=== PATIENT | female | born 1980 | race Caucasian/White ===

== ENCOUNTER 2018-10-01 20:35 | Emergency (ER) | payer MEDICAID, SELFPAY ==
[2018-10-01 20:37] VITALS: BP 118/86; PULSE 75; RESP 18; TEMP 36.9; O2SAT 100; BMI 31.4
--- NOTE | 2018-10-01 21:08 | ED.VISSUMM ---
- ER Visit Summary Date of Service: 10/01/18 Chief Complaint: Anxiety History of Present Illness: The patient is a 37 F who had a panic attack 1 month ago. She was seen at [facility] given 9 tabs of Ativan 0.5 mg. She space the pills out as needed but ran out of medication. She had a bad episode again 3 days ago. She is not able to get in to see her nurse practitioner for almost another month and then will be referred on to another doctor. She is currently staying with her father in [place]. Physical Examination: Vital signs unremarkable. Patient sitting upright in bed no acute distress. Head neck examination unremarkable. Heart is regular rate and rhythm with 3/6 murmur. Lungs sounds are clear. Abdomen is soft nontender. Psychiatric evaluation reveals normal speech pattern. She denies suicidal homicidal thoughts. Test Results: [] Emergency Department Course and Treatment: I attempted to verify her prescription on oars, but the site is currently down. Patient be given a prescription for 10 tabs of Ativan as needed. Social work will talk with the patient about follow-up with behavioral health. Treatment Plan: [] Disposition: Discharge Impression: Anxiety This note was generated with [email or web address] dictation software. It may contain incorrect words, spelling, and punctuation that were not noted in review of the chart prior to signing ED Disposition - Plan for ED Patient: Chief Complaint: Anxiety Instructions: ED Panic Attack Prescriptions: Lorazepam [Ativan] 0.5 mg PO TID PRN #10 tablet PRN Reason: Anxiety Referrals: Behavioral,Health [facility] [GROUP OF PHYSICIANS] - As soon as possible
--- NOTE | 2018-10-01 21:08 | ED.DEP ---
ED Disposition - Plan for ED Patient: Disposition: Home or Assisted Living Chief Complaint: Anxiety Instructions: ED Panic Attack Prescriptions: Lorazepam [Ativan] 0.5 mg PO TID PRN #10 tablet PRN Reason: Anxiety Referrals: Behavioral,Health [facility] [GROUP OF PHYSICIANS] - As soon as possible
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
[2018-10-01 22:17] VITALS: BP 133/71; PULSE 74; RESP 16; RESP 18; O2SAT 100; O2SAT 97
--- NOTE | 2018-10-02 11:55 | CM.ED ---
SOCIAL WORK NOTE CALL TO THE COUNSELING CENTER, SPOKE WITH TRINIDAD. PT IS A PREVIOUS CLIENT OF THE COUNSELING CENTER. APPOINTMENT SCHEDULED FOR 10/17/18 AT 9:30AM. CALL TO PT'S TO UPDATE ON APPOINTMENT TIME AND DATE. LEFT MESSAGE WITH THIS WORKER'S CALL BACK INFORMATION.
== END 2018-10-01 22:21 | disposition home or self-care (01) ==
PROVIDERS: Emergency Provider Emergency Medicine
DX: F41.9 Anxiety disorder, unspecified (principal); Z79.899 Other long term (current) drug therapy
CPT/HCPCS: 99282

== ENCOUNTER 2019-05-25 07:29 | Emergency (ER) | payer MEDICAID, SELFPAY ==
[2019-05-25 07:36] VITALS: BP 111/75; PULSE 65; RESP 12; TEMP 36.7; O2SAT 99; BMI 30.9
--- NOTE | 2019-05-25 08:17 | ED.VIS.GEN ---
History of Present Illness Chief Complaint: Anxiety Informant: Patient Onset: Today - An hour ago Context: - - upon waking Current Severity: Mild Maximum Severity: Severe Relieved by: reassurance from EMS Associated Symptoms: chest tightness, now resolved Narrative: Patient has an anxiety disorder that is not treated, states she has been under a lot of stress lately, and awoke with some chest discomfort this morning that is gone. It was nonpleuritic tightness. No pain or swelling in her legs. She felt like she was panicking mostly because she has a history of a bicuspid aortic valve and was very concerned about her discomfort which she has had before. She denies any palpitations, near syncope, dyspnea. No sweating, cough or recent fever, nausea, or arm discomfort. States she has known about her bicuspid aortic valve for a long time, recently had an echo to reevaluate it at another healthcare facility. - Past Medical History (1) Anxiety Status: Chronic (2) Bicuspid aortic valve Status: Chronic Past Medical History - Allergies and Home Meds Allergies/Adverse Reactions: Allergies codeine Adverse Reaction (Verified 10/01/18 20:37) Nausea Primary Care Physician: Bambi Hillman [Primary Care Provider] - Lives: Alone Smoking Status: Current every day smoker Drugs: None Review of Systems General: Denies: Chills, Fever, Sweats Eyes: Denies: Visual changes - bilaterally, Diplopia ENT: Denies: Rhinorrhea, Sore throat Cardiovascular: Reports: Chest pain - resolved. Denies: Palpitations Respiratory: Denies: Dyspnea, Cough, Dyspnea on exertion Gastrointestinal: Denies: Abdominal pain, Nausea, Vomiting, Diarrhea, Melena, Hematochezia Genitourinary: Denies: Dysuria, Hematuria, Frequency Musculoskeletal: Denies: Back pain, Extremity Pain Skin: Denies: Rash, Wounds Neurological: Denies: Headache, Weakness, Numbness Psych: Reports: Anxiety. Denies: Suicidal thoughts Physical Exam Vital Signs/Narrative: Vital Signs Temp Pulse Resp BP Pulse Ox 05/25/19 07:36 98.1 F 65 12 111/75 99 Inital Vital Signs reviewed: Yes General: Well nourished, Well developed, No Acute Distress Head: Normocephalic, Atraumatic Eyes: Perrl, EOMI ENT: Moist mucous membranes, No rhinorrhea Neck: Supple, Nontender Cardiovascular: Regular rate, Regular rhythm, Murmur - 2/6 systolic Respiratory: No distress, CTA bilaterally, Chest nontender Abdomen: Soft, Nontender, Nondistended, Normal bowel sounds Back: Nontender, Normal Inspection Extremities: Nontender, No edema Skin: Normal color, No rash, No Trauma Neurological: Alert, Oriented x3, Cranial nerves II-XII grossly intact, Normal Strength, Normal Sensation Psychological: Normal Mood, - - normal affect initially, but labile in that she becomes very anxious easily; no CP in ED Diagnostic/Tx/Re-eval - Medical Decision Making EMS EKG is of good quality and shows a sinus rhythm at 80 with no abnormal intervals, narrow QRS, and no ectopy. It is a normal EKG without acute injury. I do not feel this needs to be repeated. I reassured her, that bicuspid aortic valves generally do not cause problems that cause acute chest discomfort, and with her exam being unremarkable except for her systolic murmur which is likely caused by her valve, I do not detect any emergency that is likely causing her chest discomfort. It is more likely caused by her anxiety. She has had this occur before. I started discussing details about her valve to reassure her, and she put her head in her hands and demanded that I stop because she was having another anxiety attack. She will be given a dose of oral Ativan which she states is helped in the past and discharged in stable condition. ED Disposition - Plan for ED Patient: Disposition: Home or Assisted Living Diagnosis: Anxiety, Chest pain, unspecified Instructions: Panic Attack Referrals: Bambi Hillman [Primary Care Provider] - 3-5 Days
[2019-05-25 08:32] VITALS: BP 131/90; PULSE 63; RESP 16
[2019-05-25] MEDS: LORazepam 1 MG Tablet PO (08:36)
--- NOTE | 2019-05-25 08:36 | ED.RN ---
Pt requested half dose ordered. Dr zamora. She has called for ride home.
== END 2019-05-25 08:49 | disposition home or self-care (01) ==
LOC: ED 08:30
PROVIDERS: Emergency Provider Emergency Medicine
DX: F41.9 Anxiety disorder, unspecified (principal); R07.9 Chest pain, unspecified; Q23.1 Congenital insufficiency of aortic valve; F17.200 Nicotine dependence, unspecified, uncomplicated; Z79.899 Other long term (current) drug therapy; Z88.5 Allergy status to narcotic agent
CPT/HCPCS: 99284

== ENCOUNTER 2019-11-24 17:28 | Emergency (ER) | payer MEDICAID, SELFPAY ==
[2019-11-24 17:29] VITALS: BP 123/72; PULSE 91; RESP 18; TEMP 36.4; O2SAT 99; BMI 32.4
[2019-11-24 17:38] VITALS: O2SAT 98
--- NOTE | 2019-11-24 17:50 | CT_ITS ---
STUDY: CT BRAIN WITHOUT CONTRAST REASON FOR EXAM: Female, 39 years old. Trauma RADIATION DOSAGE (If Supplied By Facility): CTDIvol = ( 44.99 ) mGy, DLP = ( 745.49 ) mGycm TECHNIQUE: Transaxial CT imaging of the brain was performed without administration of intravenous contrast material. Individualized dose optimization techniques were used for this CT. COMPARISON: No relevant priors. FINDINGS: There is a 1 cm focal hypodensity in the right subcortical frontal white matter. There is no acute intracranial hemorrhage, extra parenchymal fluid collections, hydrocephalus or herniation. The skull is intact. CT/Brain/Head without Contrast IMPRESSION: 1. No acute intracranial trauma. 2. Right frontal white matter lesion, unknown etiology. Elective workup with brain MRI is advised. Electronically Signed: Travon Cowan, at 18:11 EST Tel , Service support ,
--- NOTE | 2019-11-24 17:51 | CT_ITS ---
STUDY: CT CERVICAL SPINE WITHOUT CONTRAST REASON FOR EXAM: Female, 39 years old. , Pain RADIATION DOSAGE (If Supplied By Facility): CTDIvol = ( 25.54 ) mGy, DLP = ( 591.73 ) mGycm TECHNIQUE: High resolution transaxial imaging was performed without contrast material. Sagittal and coronal images were reconstructed. Individualized dose optimization techniques were used for this CT. COMPARISON: None FINDINGS: Craniocervical junction and cervical spine are intact and aligned. Mineralization is normal. Paraspinous soft tissues are normal. Spinal canal is patent at all levels. Neural foramina are patent. There is a 1.5 cm peripherally calcified hypodense thyroid nodule. CT/Spine Cervical without Contras IMPRESSION: 1. No acute osseous injury. 2. Left thyroid nodule, referred ultrasonography for more definitive assessment. Electronically Signed: Travon Cowan, at 18:12 EST Tel , Service support ,
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
[2019-11-24 19:35] VITALS: BP 122/70; PULSE 78; RESP 17; O2SAT 99
--- NOTE | 2019-11-24 20:15 | ED.RN ---
VISITOR FOUND PT ID ON FLOOR IN ED LOBBY, THIS RN TRIED TO CONTACT PT TWICE, PT MAILBOX FULL, AND THIS RN WAS UNABLE TO LEAVE A VOICE MESSAGE TO INFORM HER OF HER ID BEING PRESENT IN ED. SECURITY CONTACTED TO PLACE ID IN LOST AND FOUND.
== END 2019-11-24 19:36 | disposition home or self-care (01) ==
PROVIDERS: Emergency Provider Emergency Medicine
DX: S09.90XA Unspecified injury of head, initial encounter (principal); M54.2 Cervicalgia; V43.62XA Car passenger injured in collision with other type car in traffic accident, initial encounter; Y93.9 Activity, unspecified; Y92.9 Unspecified place or not applicable; Y99.9 Unspecified external cause status; G93.9 Disorder of brain, unspecified; E04.1 Nontoxic single thyroid nodule; Q23.1 Congenital insufficiency of aortic valve; F41.9 Anxiety disorder, unspecified; Z88.5 Allergy status to narcotic agent; F17.200 Nicotine dependence, unspecified, uncomplicated
CPT/HCPCS: 70450; 72125; 99284

== ENCOUNTER 2020-04-04 02:03 | Emergency (ER) | payer MEDICAID, SELFPAY ==
[2020-04-04 02:03] VITALS: BP 145/85; PULSE 100; RESP 16; TEMP 37.1; O2SAT 98
[2020-04-04 02:06] VITALS: BP 145/85; PULSE 100; RESP 16; TEMP 37.1; O2SAT 98; BMI 31.4
--- NOTE | 2020-04-04 02:08 | EKG12_ITS ---
Test Reason : PALPATATIONS Blood Pressure : / mmHG Vent. Rate : 093 BPM Atrial Rate : 093 BPM P-R Int : 138 ms QRS Dur : 082 ms QT Int : 340 ms P-R-T Axes : 075 055 060 degrees QTc Int : 422 ms Normal sinus rhythm with sinus arrhythmia Normal ECG Confirmed by SARAHY LOPEZ, ROMI ([id number]), book or script editor RANDI PEARL ([id number]) on 04/06/2020 1:08:55 PM Referred By: ABHIJIT Confirmed By:ROMI WEATHERS MD
--- NOTE | 2020-04-04 02:13 | ED.RN ---
NO OLD EKGS IN MUSE
--- NOTE | 2020-04-04 02:27 | ED.DCSUM_ITS ---
History of Present Illness Chief Complaint: Palpitations Informant: Patient, EMS Narrative: Patient presenting secondary to palpitations and chest pain. Patient has an underlying history of a bicuspid aortic valve, denies any history of cardiac arrhythmias she used to see cardiology in [place], but no longer follows with a library services coordinator. Patient reports that intermittently she will have bouts with palpitations, but typically these only come around once a month. Patient states that over the course of about the last 5 days however she has been having very frequent bouts of palpitations. She reports that these will come on, last around 5 to 6 minutes at a time are associated with chest pain and then will spontaneously resolve. She reports that her heart rate will be around 130s or 140, is not necessarily inducible by anything such as anxiety or exertion, and occasionally will even wake her up from sleep as was the case tonight. Patient denies that she has had any sort of recent fevers, chills, night sweats, unintended weight loss. She has had somewhat of a decreased appetite but denies any heat or cold intolerance. Patient is not currently on any medications, she does not take stimulants, she denies any DVT or PE risk factors. Review of systems otherwise negative. Past Medical History - Allergies and Home Meds Allergies/Adverse Reactions: Allergies codeine Adverse Reaction (Verified 11/24/19 17:52) Nausea Primary Care Physician: Bambi Hillman [Photographic Equipment Mechanic] - Prior records reviewed: Yes Past Medical History: - - Bicuspid aortic valve Smoking Status: Current every day smoker Alcohol: None Drugs: None Review of Systems All systems negative except as indicated General: Denies: Chills, Fever, Sweats Eyes: Denies: Visual changes - bilaterally, Diplopia ENT: Denies: Rhinorrhea, Sore throat Cardiovascular: Reports: Chest pain, Palpitations Respiratory: Denies: Dyspnea, Cough, Dyspnea on exertion Gastrointestinal: Denies: Abdominal pain, Nausea, Vomiting, Diarrhea, Melena, Hematochezia Genitourinary: Denies: Dysuria, Hematuria, Frequency Musculoskeletal: Denies: Back pain, Extremity Pain Skin: Denies: Rash, Wounds Neurological: Denies: Headache, Weakness, Numbness Physical Exam Vital Signs/Narrative: Vital Signs Temp Pulse Resp BP Pulse Ox 04/04/20 02:06 98.7 F 100 16 145/85 H 98 04/04/20 02:03 98.7 F 100 16 145/85 H 98 Inital Vital Signs reviewed: Yes General: Well nourished, Well developed, No Acute Distress Head: Normocephalic, Atraumatic Eyes: Perrl, EOMI ENT: Moist mucous membranes, No rhinorrhea Neck: Supple, Nontender, - - Thyroid is normal to palpation and nontender Cardiovascular: Regular rate, Regular rhythm, No murmurs Respiratory: No distress, CTA bilaterally, Chest nontender Abdomen: Soft, Nontender, Nondistended, Normal bowel sounds Back: Nontender, Normal Inspection Extremities: Nontender, No edema Skin: Normal color, No rash Neurological: Alert, Oriented x3, Cranial nerves II-XII grossly intact, Normal Strength, Normal Sensation Psychological: Normal affect, Normal Mood Diagnostic/Tx/Re-eval Clinical Impression(s) from Imaging Studies Chest X-Ray 04/04/20 02:35 IMPRESSION: Normal x-ray examination of the chest. Electronically Signed: Jake Cota, at 3:59 EDT Tel , Service support , Chest CTA 04/04/20 03:17 IMPRESSION: No demonstrated pulmonary embolism or arterial dissection. Bilateral nonspecific thyroid nodules the largest measures 1.2 cm is in the left thyroid lobe. Electronically Signed: Jake Cota, at 6:14 EDT Tel , Service support , Laboratory Data 04/04/20 04/04/20 04/04/20 02:30 02:30 02:30 WBC 10.8 RBC 4.37 Hgb 13.0 Hct 38.4 MCV 87.9 MCH 29.7 MCHC 33.9 RDW Std Deviation 39.9 RDW Coeff of Rika 12.4 Plt Count 251 MPV 10.6 Immature Gran % (Auto) 0.200 Neut % (Auto) 57.1 Lymph % (Auto) 31.3 [place] % (Auto) 8.9 Eos % (Auto) 1.9 Baso % (Auto) 0.6 Absolute Neuts (auto) 6.2 Absolute Lymphs (auto) 3.39 Nucleated RBC % 0 D-Dimer Quant (PE/DVT) 0.72 H* Sodium 139 Potassium 3.4 L Chloride 110 H Carbon Dioxide 24.0 Anion Gap 5 BUN 10 Creatinine 0.52 L Estim Creat Clear Calc 126.67 Est GFR (MDRD) Af Amer 168 Est GFR (MDRD) Non-Af 139 BUN/Creatinine Ratio 19.1 Glucose 109 H Calcium 8.9 Troponin I < 0.015 TSH 2.48 Serum , Qual 04/04/20 02:30 WBC RBC Hgb Hct MCV MCH MCHC RDW Std Deviation RDW Coeff of Rika Plt Count MPV Immature Gran % (Auto) Neut % (Auto) Lymph % (Auto) [place] % (Auto) Eos % (Auto) Baso % (Auto) Absolute Neuts (auto) Absolute Lymphs (auto) Nucleated RBC % D-Dimer Quant (PE/DVT) Sodium Potassium Chloride Carbon Dioxide Anion Gap BUN Creatinine Estim Creat Clear Calc Est GFR (MDRD) Af Amer Est GFR (MDRD) Non-Af BUN/Creatinine Ratio Glucose Calcium Troponin I TSH Serum , Qual NEGATIVE - EKG Initial EKG Interpretation: - - Sinus rhythm 93 with some sinus arrhythmia noted, isoelectric ST segments normal T waves normal [place] and QTc intervals no evidence of WPW or Brugada morphology. - Medical Decision Making Patient presented secondary to feelings of intermittent palpitations. EKG was obtained and was found to be within normal limits. Patient did not have any evidence of palpitations or runs of arrhythmia on telemetry monitoring, although EMS did tell me that she had a heart rate of 130 when they arrived. Work-up was obtained. CBC chemistry TSH were within normal limits. Troponin was normal. test was negative. Due to the patient's elevated heart rate I did get a d-dimer which unfortunately was also found to be elevated. PA and lateral chest x-ray by my personal review as well as radiology is negative. With some difficulty getting IV access on the patient, but ultimately nursing was able to obtain access in the patient's right AC and CT angiogram of the chest was negative for PE or pulmonary pathology but interestingly did show some thyroid nodules. Patient was informed of this, was recommended that she needs to follow this up with primary care for a ultrasound and potentially a needle biopsy. I do not see any reasons for the patient to be admitted at this point. Patient was given reassurance and was discharged in stable condition. ED Disposition - Plan for ED Patient: Disposition: Home or Assisted Living Diagnosis: Palpitations, Thyroid nodule Instructions: ED Palpitations, Common Thyroid Problems Additional Instructions: Follow-up with your primary care physician for ultrasound and further evaluation of your thyroid nodules.
--- NOTE | 2020-04-04 02:35 | RAD_ITS ---
STUDY: X-RAY CHEST REASON FOR EXAM: Female, 39 years old. PALPITATIONS AND ANXIETY TECHNIQUE: Single AP portable view of the chest. COMPARISON: None. FINDINGS: The lungs are clear and expanded. There is no demonstrated pleural abnormality. Normal size heart. Normal mediastinum and jamilah. Normal visualized pulmonary arteries. Normal visualized aortic arch and descending thoracic aorta. Normal visualized thoracic spine. Normal visualized ribs, clavicles, and shoulders. There is no demonstrated abnormality of the visualized soft tissue structures of the upper abdomen. RAD/Chest PA and Lateral IMPRESSION: Normal x-ray examination of the chest. Electronically Signed: Jake Cota, at 3:59 EDT Tel , Service support ,
[2020-04-04] MEDS: 0.9% Normal Saline 1,000 ML 1000 ML IV (02:37)
[2020-04-04 02:46] LABS: Absolute Lymphocyte Count 3.39 X10^3/uL (0.83-4.51); Absolute Neutrophil Count 6.2 X10^3/uL (2.0-7.7); Basophil# 0.06 X10^3/uL; Basophil% 0.6 % (0-1); Eosinophil# 0.21 X10^3/uL; Eosinophils% 1.9 % (0-5); Hematocrit 38.4 % (37-47); Lymphocyte # 3.39 X10^3/ul (4.0); Lymphocyte % 31.3 % (19-41); Mean Corp Hgb Conc 33.9 g/dL (32-36); Mean Corpuscular Hgb 29.7 pg (27.0-32.0); Mean Corpuscular Volume 87.9 fL (81-99); Mean Platelet Vol. 10.6 fl (6.2-12.0); Monocyte# 0.96 X10^3/uL; Monocyte% 8.9 % (0-10); NRBC Flagged by Analyzer 0 % (0-5); Neutrophil % 57.1 % (47-70); Platelet Count 251 K/mm3 (150-450); RBC Distribution Width CV 12.4 % (11.6-14.6); RBC Distribution Width SD 39.9 fl (35.1-43.9); Red Blood Count 4.37 M/mm3 (4.2-5.4); White Blood Count 10.8 K/mm3 (4.4-11.0)
[2020-04-04 02:57] LABS: Internal QC Validated? YES +Cl - CLEAR BKGD; Pregnancy, Serum, hCG Quali. NEGATIVE Negative
[2020-04-04 03:02] LABS: D-Dimer Quantitative (DVT/PE) 0.72 FEU/ug/m (0.27-0.49)
[2020-04-04 03:03] VITALS: BP 114/76; PULSE 85; RESP 13
[2020-04-04 03:10] LABS: Anion Gap 5 (5-15); BUN 10 mg/dL (7-18); BUN/Creat Ratio 19.1 RATIO (10-20); Calcium,Total 8.9 mg/dL (8.5-10.1); Chloride 110 mmol/L (98-107); Creatinine, Serum 0.52 mg/dL (0.55-1.02); EST Glomerular Filtration Rate 139 mL/min (>60); Est Glom Filt Rate - Afr Amer 168 mL/min (>60); Estimated Creatinine Clearance 126.67 ml/min; Glucose 109 mg/dL (74-106); Potassium 3.4 mmol/L (3.5-5.1); Sodium Level 139 mmol/L (136-145); Thyroid Stim Hormone (TSH) 2.48 uIU/mL (0.358-3.74)
--- NOTE | 2020-04-04 03:17 | CT_ITS ---
STUDY: CTA CHEST REASON FOR EXAM: Female, 39 years old. HEART PALPITATIONS AND ANXIETY. H/O BICUSPID AORTIC VALVE RADIATION DOSAGE (If Supplied By Facility): CTDIvol = ( 10.775 ) mGy, DLP = ( 384.56 ) mGycm TECHNIQUE: The examination was performed with the intravenous administration of IV 100mL Isovue-370. Post-processing of the angiographic images was performed, with multiplanar reformation and 3D reconstruction. Individualized dose optimization techniques were used for this CT. COMPARISON: None. FINDINGS: Bilateral nonspecific thyroid nodules the largest measures 1.2 cm is in the left thyroid lobe. Normal enhancement of the main pulmonary artery and right and left pulmonary arteries. Normal enhancement of the bilateral peripheral pulmonary arteries. There is no demonstrated pulmonary embolism. Normal thoracic aorta and visualized great vessels. There is no demonstrated aortic dissection. Normal heart and pericardium. Normal mediastinum. There is a calcified lymph node in the right hilum measures 2.5 cm consistent with an old infectious process. Normal visualized trachea and bronchi. The lungs are well expanded. Normal pulmonary parenchyma. Normal pleura. Normal chest wall structures. Normal osseous structures. Normal visualized upper abdomen. CT/CTA Chest W/WO Contrast IMPRESSION: No demonstrated pulmonary embolism or arterial dissection. Bilateral nonspecific thyroid nodules the largest measures 1.2 cm is in the left thyroid lobe. Electronically Signed: Jake Cota, at 6:14 EDT Tel , Service support ,
[2020-04-04 04:15] VITALS: BP 136/77; PULSE 83; RESP 18
[2020-04-04 05:16] VITALS: PULSE 106; RESP 16
[2020-04-04 06:33] VITALS: BP 119/79; PULSE 76; RESP 15; O2SAT 96
--- NOTE | 2020-04-04 06:47 | ED.RN ---
PT DECIDED SHE DIDN'T WANT THE ORDERED IV ATIVAN. WASTED ATIVAN WITH FUENTES MAHONEY RN.
== END 2020-04-04 06:48 | disposition home or self-care (01) ==
PROVIDERS: Emergency Provider Emergency Medicine
DX: E04.2 Nontoxic multinodular goiter (principal); R00.2 Palpitations; R07.9 Chest pain, unspecified; R79.89 Other specified abnormal findings of blood chemistry; Q23.1 Congenital insufficiency of aortic valve; F17.200 Nicotine dependence, unspecified, uncomplicated; Z79.899 Other long term (current) drug therapy
CPT/HCPCS: 71046; 71275; 80048; 84443; 84484; 84703; 85025; 85379; 93005; 96360; 96361; 96372; 96374; 99285; J7030; Q9967; A4216

== ENCOUNTER 2020-04-22 16:10 | Emergency (ER) | payer MEDICAID, SELFPAY ==
[2020-04-22 16:15] VITALS: BP 113/83; PULSE 94; RESP 18; TEMP 36.8; O2SAT 99; BMI 29.2
--- NOTE | 2020-04-22 16:49 | EKG12_ITS ---
Test Reason : CP Blood Pressure : / mmHG Vent. Rate : 074 BPM Atrial Rate : 074 BPM P-R Int : 136 ms QRS Dur : 084 ms QT Int : 356 ms P-R-T Axes : 071 053 063 degrees QTc Int : 395 ms Normal sinus rhythm Normal ECG Confirmed by RANI LOPEZ, CECILIA ([id number]), acquisition editor RANDI PEARL ([id number]) on 04/26/2020 8:42:14 AM Referred By: JUAN Confirmed By:CECILIA SARAVIA MD
--- NOTE | 2020-04-22 16:53 | ED.VIS.GEN ---
History of Present Illness Chief Complaint: Back Informant: Patient Onset: Yesterday Timing: Intermittent Narrative: Patient is a 39-year-old female with history of anxiety presenting with left thoracic rib pain. She states it is pleuritic in nature and worse when she takes a deep breath. She intermittently has episodes where is very stabbing in sensation. When this happened she states she feels short of breath. This started last night. She is had about 6 episodes today. She was concerned that there could be something more seriously wrong with her. She states yesterday she felt a little warm had some mild congestion and a mild cough. She notes that the cough is chronic for her because she has a history of tobacco use. She denies any sick contacts. She talked to the nurse senior compensation analyst line who recommend she come to the emergency room to be evaluated further. She is her bowel moods been loose but she denies any black or blood in her stool. She denies any associated nausea or vomiting. She denies any change in her taste or smell. She not take any medication for pain. Denies any swelling of her legs. Denies any history of DVT or PE. Past Medical History - Allergies and Home Meds Allergies/Adverse Reactions: Allergies codeine Adverse Reaction (Verified 04/22/20 16:12) Nausea Past Medical History: - - Anxiety, congenital bicuspid aortic valve Surgical History: noncontributory Smoking Status: Current every day smoker Review of Systems General: Denies: Chills, Fever, Malaise, Sweats Eyes: Denies: Visual changes - bilaterally, Diplopia ENT: Denies: Rhinorrhea, Sore throat Cardiovascular: Reports: Chest pain. Denies: Palpitations, Heart racing Respiratory: Reports: Dyspnea, Cough. Denies: Dyspnea on exertion Gastrointestinal: Denies: Abdominal pain, Nausea, Vomiting, Diarrhea, Melena, Hematochezia Genitourinary: Denies: Dysuria, Hematuria, Frequency Musculoskeletal: Denies: Back pain, Extremity Pain Skin: Denies: Rash, Wounds Neurological: Denies: Headache, Weakness, Numbness Psych: Reports: Anxiety. Denies: Depression Physical Exam Vital Signs/Narrative: Vital Signs Temp Pulse Resp BP Pulse Ox 04/22/20 16:15 98.2 F 94 18 113/83 H 99 Inital Vital Signs reviewed: Yes General: Well nourished, Well developed, No Acute Distress Head: Normocephalic, Atraumatic Eyes: Perrl, EOMI ENT: Moist mucous membranes, No rhinorrhea Neck: Supple, Nontender Cardiovascular: Regular rate, Regular rhythm, Murmur Respiratory: No distress, CTA bilaterally, Chest nontender. Negative for: Chest tenderness Abdomen: Soft, Nontender, Nondistended, Normal bowel sounds Back: Nontender, Normal Inspection, - - Points to just beneath her left scapula as the area of pain is not reproducible on palpation. Negative for: Spinal tenderness Extremities: Nontender, No edema. Negative for: Edema, Calf Tenderness Skin: Normal color, No rash Neurological: Alert, Oriented x3, Cranial nerves II-XII grossly intact, Normal Strength, Normal Sensation Psychological: Normal affect, Normal Mood, Tearful, - - Anxious Diagnostic/Tx/Re-eval Chest X-Ray - ED: 2 View, Read by ED Physician, Read by Radiologist, No Acute Disease Clinical Impression(s) from Imaging Studies Chest X-Ray 04/22/20 17:04 IMPRESSION: No demonstrated acute process. Electronically Signed: Felix Ricketts MD at 17:47 EDT , Service support , Laboratory Data 04/22/20 04/22/20 04/22/20 16:20 16:20 16:20 WBC 10.3 RBC 4.55 Hgb 13.4 Hct 40.6 MCV 89.2 MCH 29.5 MCHC 33.0 RDW Std Deviation 39.8 RDW Coeff of Rika 12.2 Plt Count 278 MPV 11.2 Immature Gran % (Auto) 0.300 Neut % (Auto) 71.6 H Lymph % (Auto) 18.3 L [place] % (Auto) 7.8 Eos % (Auto) 1.4 Baso % (Auto) 0.6 Absolute Neuts (auto) 7.4 Absolute Lymphs (auto) 1.88 Nucleated RBC % 0 D-Dimer Quant (PE/DVT) 0.47 Sodium 139 Potassium 3.9 Chloride 109 H Carbon Dioxide 25.0 Anion Gap 5 BUN 12 Creatinine 0.55 Estim Creat Clear Calc 119.76 Est GFR (MDRD) Af Amer 159 Est GFR (MDRD) Non-Af 131 BUN/Creatinine Ratio 21.8 H Glucose 94 Calcium 9.2 Troponin I < 0.015 Urine Color Urine Clarity Urine pH Ur Specific [place] Urine Protein Urine Glucose (UA) Urine Ketones Urine Occult Blood Urine Nitrite Urine Bilirubin Urine Urobilinogen Ur Leukocyte Esterase Urine RBC Urine WBC Ur Squamous Epith Cells Amorphous Sediment Urine Bacteria Urine Mucus Urine Test 04/22/20 04/22/20 17:35 17:35 WBC RBC Hgb Hct MCV MCH MCHC RDW Std Deviation RDW Coeff of Rika Plt Count MPV Immature Gran % (Auto) Neut % (Auto) Lymph % (Auto) Bradley % (Auto) Eos % (Auto) Baso % (Auto) Absolute Neuts (auto) Absolute Lymphs (auto) Nucleated RBC % D-Dimer Quant (PE/DVT) Sodium Potassium Chloride Carbon Dioxide Anion Gap BUN Creatinine Estim Creat Clear Calc Est GFR (MDRD) Af Amer Est GFR (MDRD) Non-Af BUN/Creatinine Ratio Glucose Calcium Troponin I Urine Color Yellow Urine Clarity Sl. Cloudy Urine pH 7.0 Ur Specific [place] 1.010 Urine Protein Negative Urine Glucose (UA) Normal Urine Ketones Negative Urine Occult Blood Negative Urine Nitrite Negative Urine Bilirubin Negative Urine Urobilinogen Normal Ur Leukocyte Esterase Negative Urine RBC 0 SEEN Urine WBC 0 SEEN Ur Squamous Epith Cells 0 SEEN Amorphous Sediment 1+ Urine Bacteria 0 SEEN Urine Mucus 0 SEEN Urine Test Negative - Rhythm Strip Rhythm Strip: Sinus Rhythm Rate: 74 Ectopy: None - EKG Initial EKG Interpretation: Sinus Rhythm, - - Normal sinus rhythm at a rate of 74 Normal axis Normal intervals Normal ST segments Compared to prior EKG on 04/04/2020 patient has sinus arrhythmia but no other changes - Medical Decision Making Patient evaluated for atraumatic thoracic back pain. It is more on the left side. It seems to have a pleuritic component to it. Is not reproducible. There is no overlying rash. Patient is low risk for cardiac event or PE. I did obtain a d-dimer as she is having otherwise asymptomatic pleuritic pain. Have a low suspicion for PE and with a negative d-dimer I do not think a CTA is indicated. Her troponin is normal. EKG does not show any dynamic changes. The exact cause of her pain is not clear however differential includes pleurisy as well as muscle skeletal pain. Patient is counseled that she stable for discharge. Have very low clinical suspicion for coronavirus given her history, physical evaluation and lab results/chest x-ray. I do not think a COVID swab is indicated at this time. Patient does go on to mention that she has a outpatient COVID swab scheduled for tomorrow. I do question of there could be component of anxiety related to her symptoms. Patient was discharged home to follow-up with her primary care doctor. She is encouraged to alternate Tylenol and ibuprofen as needed for pain control. Patient is counseled on signs and symptoms requiring return to the emergency room. Patient verbalizes agreement and understand this plan. Patient discharged home in stable and improved condition. ED Disposition - Plan for ED Patient: Disposition: Home or Assisted Living Diagnosis: Acute thoracic back pain Instructions: ED Back Pain Acute or Chronic, ED Chest Pain Pleurisy Additional Instructions: Please follow-up with your primary care doctor. I have a low suspicion for coronavirus infection at this time. I think you are stable for outpatient follow-up and you do not have any signs consistent with a blood clot, pneumonia or heart issue at this time. Alternate Tylenol and ibuprofen as needed for your pain.
[2020-04-22 17:02] LABS: Absolute Lymphocyte Count 1.88 X10^3/uL (0.83-4.51); Absolute Neutrophil Count 7.4 X10^3/uL (2.0-7.7); Basophil# 0.06 X10^3/uL; Basophil% 0.6 % (0-1); Eosinophil# 0.14 X10^3/uL; Eosinophils% 1.4 % (0-5); Hematocrit 40.6 % (37-47); Hemoglobin 13.4 g/dL (12.0-15.0); Lymphocyte # 1.88 X10^3/ul (4.0); Lymphocyte % 18.3 % (19-41); Mean Corpuscular Hgb 29.5 pg (27.0-32.0); Mean Corpuscular Volume 89.2 fL (81-99); Mean Platelet Vol. 11.2 fl (6.2-12.0); Monocyte% 7.8 % (0-10); NRBC Flagged by Analyzer 0 % (0-5); Neutrophil # 7.36 X10^3/uL (2.7-7.7); Neutrophil % 71.6 % (47-70); Platelet Count 278 K/mm3 (150-450); RBC Distribution Width CV 12.2 % (11.6-14.6); RBC Distribution Width SD 39.8 fl (35.1-43.9); Red Blood Count 4.55 M/mm3 (4.2-5.4); White Blood Count 10.3 K/mm3 (4.4-11.0)
--- NOTE | 2020-04-22 17:04 | RAD_ITS ---
STUDY: X-RAY CHEST REASON FOR EXAM: Female, 39 years old. LEFT POSTERIOR LUNG/ CHEST PAIN -- HAS BICUSPID AORTIC VALVE TECHNIQUE: PA and lateral views of the chest. COMPARISON: Chest CTA dated April 04 2020 FINDINGS: The lungs are clear and expanded. There is no demonstrated pleural abnormality. Normal size heart. Reidentification of multiple calcified hilar lymph nodes. Normal visualized pulmonary arteries. Normal visualized aortic arch and descending thoracic aorta. Normal visualized thoracic spine. Normal visualized ribs, clavicles, and shoulders. There is no demonstrated abnormality of the visualized soft tissue structures of the upper abdomen. RAD/Chest PA and Lateral IMPRESSION: No demonstrated acute process. Electronically Signed: Felix Ricketts MD at 17:47 EDT , Service support ,
[2020-04-22 17:16] LABS: D-Dimer Quantitative (DVT/PE) 0.47 FEU/ug/m (0.27-0.49)
[2020-04-22 17:24] LABS: Anion Gap 5 (5-15); BUN 12 mg/dL (7-18); BUN/Creat Ratio 21.8 RATIO (10-20); Calcium,Total 9.2 mg/dL (8.5-10.1); Chloride 109 mmol/L (98-107); Creatinine, Serum 0.55 mg/dL (0.55-1.02); EST Glomerular Filtration Rate 131 mL/min (>60); Est Glom Filt Rate - Afr Amer 159 mL/min (>60); Estimated Creatinine Clearance 119.76 ml/min; Glucose 94 mg/dL (74-106); Potassium 3.9 mmol/L (3.5-5.1); Sodium Level 139 mmol/L (136-145)
[2020-04-22 17:39] LABS: Bacteria 0 SEEN /hpf (None Seen); Mucous, Urine 0 SEEN /hpf (<or=2+); Red Blood Cells-Urine 0 SEEN /hpf (0-5); Squamous Epithelial Cells - UA 0 SEEN /hpf (5-10); White Blood Cells 0 SEEN /hpf (0-5)
[2020-04-22 17:59] LABS: Internal QC Validated? YES +Cl - CLEAR BKGD; Pregnancy, Urine Negative Negative
[2020-04-22 18:05] LABS: Color, Urine Yellow (Yellow); Glucose, Dipstick Normal (Normal); Ketone-Dipstick Negative (Negative); Leukocyte Esterase-Dipstick Negative /ul (Negative); Nitrite-Dipstick Negative (Negative); Occult Blood-Urine Negative /ul (Negative); Protein-Dipstick Negative (Negative); Urine Bilirubin Dipstick Negative (Negative); Urine Clarity Sl. Cloudy (Clear); Urine Urobilinogen Normal (Normal)
[2020-04-22 18:06] LABS: Amorphous Sediment 1+
[2020-04-22 18:40] VITALS: BP 106/82; PULSE 70; RESP 12; O2SAT 97
== END 2020-04-22 18:50 | disposition home or self-care (01) ==
PROVIDERS: Emergency Provider Emergency Medicine
DX: M54.6 Pain in thoracic spine (principal); R07.81 Pleurodynia; F41.9 Anxiety disorder, unspecified; R06.02 Shortness of breath; R05 Cough; Q23.1 Congenital insufficiency of aortic valve; F17.200 Nicotine dependence, unspecified, uncomplicated; Z79.899 Other long term (current) drug therapy
CPT/HCPCS: 71046; 80048; 81001; 81025; 84484; 85025; 85379; 93005; 99285; A4216

== ENCOUNTER 2020-06-05 10:10 | Emergency (ER) | payer MEDICAID, SELFPAY ==
[2020-06-05 10:11] VITALS: BP 104/50; PULSE 85; RESP 16; TEMP 37.1; O2SAT 97; BMI 30.9
[2020-06-05 10:13] VITALS: BP 104/50; PULSE 85; RESP 16; TEMP 37.1; O2SAT 97
--- NOTE | 2020-06-05 10:23 | ED.DCSUM_ITS ---
History of Present Illness Chief Complaint: General Illness Informant: Patient Onset: Today Maximum Severity: Mild Narrative: The patient presents with multiple nonspecific complaints that include some slight diarrhea concerned that she might have COVID for nonspecific reasons. She has history of anxiety and panic disorder she indicates her sister who does not have COVID has nonspecific symptoms that she cannot fully describe that include diarrhea she spent slightly more time with her sister than normal she went to a local urgent care center and then she was referred to the emergency department for nonspecific reasons that really are unclear. The patient has no fever no cough no chest pain no shortness of breath the diarrhea is loose and watery and only had 1 or 2 episodes. She is had no exposure to coronavirus of any kind she has a history of bicuspid aortic valve and a cardiac murmur all of which is been stable she lives alone at home and she is doing well at home she does admit that sometimes her anxiety gets the better of her. She bought a pulse ox oximeter and she has been checking her pulse ox is and they have been normal again no fever no cough no chest pain no shortness of breath Past Medical History - Allergies and Home Meds Allergies/Adverse Reactions: Allergies codeine Adverse Reaction (Verified 06/05/20 10:11) Nausea Primary Care Physician: [facility] Doctor,Out of [Primary Care Provider] - Past Medical History: - - Includes as above Surgical History: noncontributory Smoking Status: Current every day smoker Review of Systems General: Denies: Chills, Fever, Sweats Eyes: Denies: Visual changes - bilaterally, Diplopia ENT: Denies: Rhinorrhea, Sore throat Cardiovascular: Denies: Chest pain, Palpitations Respiratory: Denies: Dyspnea, Cough, Dyspnea on exertion Gastrointestinal: Reports: Diarrhea. Denies: Abdominal pain, Nausea, Vomiting, Melena, Hematochezia Genitourinary: Denies: Dysuria, Hematuria, Frequency Musculoskeletal: Denies: Back pain, Extremity Pain Skin: Denies: Rash, Wounds Neurological: Denies: Headache, Weakness, Numbness Physical Exam Vital Signs/Narrative: Vital Signs Temp Pulse Resp BP Pulse Ox 06/05/20 10:13 98.7 F 85 16 104/50 L 97 06/05/20 10:11 98.7 F 85 16 104/50 L 97 General: Well nourished, Well developed, No Acute Distress Head: Normocephalic, Atraumatic Eyes: Perrl, EOMI ENT: Moist mucous membranes, No rhinorrhea Neck: Supple, Nontender Cardiovascular: Regular rate, Regular rhythm, No murmurs, Murmur Respiratory: No distress, CTA bilaterally, Chest nontender Abdomen: Soft, Nontender, Nondistended, Normal bowel sounds Back: Nontender, Normal Inspection Extremities: Nontender, No edema Skin: Normal color, No rash Neurological: Alert, Oriented x3, Cranial nerves II-XII grossly intact, Normal Strength, Normal Sensation Psychological: Normal affect, Normal Mood Diagnostic/Tx/Re-eval - Medical Decision Making Vital signs pulse ox temperature unremarkable her physical exam is unremarkable except for systolic murmur that she states is stable and she has been evaluated for extensively she requires no further therapy just observation. We watch the patient in the emergency department her vital signs remained unremarkable she has her own pulse ox I explained to her that given all the above there is no signs that she has been exposed to COVID or she has any symptoms like COVID she is comfortable that discussion, she will follow with outpatient providers and return for change in symptoms there does not appear to be any indication for testing Home stable Impression final concern for coronavirus exposure ED Disposition - Plan for ED Patient: Diagnosis: Situational stress, Anxiety Instructions: ED Diet for Vomiting or Diarrhea Adult Referrals: [facility] Doctor,Out of [Primary Care Provider] -
== END 2020-06-05 10:40 | disposition home or self-care (01) ==
LOC: ED 10:32
PROVIDERS: Emergency Provider Emergency Medicine
DX: F43.9 Reaction to severe stress, unspecified (principal); F41.9 Anxiety disorder, unspecified; R19.7 Diarrhea, unspecified; Q23.1 Congenital insufficiency of aortic valve; F41.0 Panic disorder [episodic paroxysmal anxiety]; F17.200 Nicotine dependence, unspecified, uncomplicated; Z79.899 Other long term (current) drug therapy
CPT/HCPCS: 99282

== ENCOUNTER 2021-01-16 20:07 | Emergency (ER) | payer MEDICAID, SELFPAY ==
[2021-01-16 20:10] VITALS: BP 128/76; PULSE 82; RESP 16; TEMP 36.4; O2SAT 99; BMI 30.9
--- NOTE | 2021-01-16 20:38 | EKG12_ITS ---
Test Reason : DYSRHYTHMIA Blood Pressure : / mmHG Vent. Rate : 075 BPM Atrial Rate : 075 BPM P-R Int : 144 ms QRS Dur : 088 ms QT Int : 378 ms P-R-T Axes : 073 054 056 degrees QTc Int : 422 ms Normal sinus rhythm Normal ECG Confirmed by SARAHY LOPEZ, ROMI ([id number]), communications editor RANDI PEARL ([id number]) on 01/19/2021 9:07:53 AM Referred By: GERARD Confirmed By:ROMI WEATHERS MD
--- NOTE | 2021-01-16 21:28 | CT_ITS ---
STUDY: CTA HEAD AND NECK WITH CONTRAST REASON FOR EXAM: Female, 40 years old. headache, left neck pain RADIATION DOSAGE (If Supplied By Facility): CTDIvol = ( 33.79 ) mGy, DLP = ( 1455.31 ) mGycm TECHNIQUE: CT angiography was performed with a multi-detector CT scanner. Data acquisition was obtained from the skull base through the vertex following intravenous administration of IV 100mL Isovue-370. MIP images were reconstructed from the axial data set. Post-processing of the angiographic images was performed, with multiplanar reformation and 3D reconstruction. Individualized dose optimization techniques were used for this CT. COMPARISON: No relevant priors. FINDINGS: Normal bilateral petrous carotid arteries. Normal right cavernous carotid artery with a normal supraclinoid bifurcation. Normal left cavernous carotid artery with a normal supraclinoid bifurcation. Normal right A1 segments of the anterior cerebral artery. Normal left A1 segments of the anterior cerebral artery. Normal intact anterior communicating artery (ACOM). Normal bilateral A2 segments of the anterior cerebral arteries. Normal right M1 and M2 segments of the middle cerebral arteries, with a normal M1 bifurcation. Normal left M1 and M2 segments of the middle cerebral arteries, with a normal M1 bifurcation. Posterior communicating arteries aren''t visualized consistent with normal variant. Normal bilateral vertebral arteries. Normal basilar artery with a normal basilar bifurcation. The visualized bilateral superior cerebellar (SCA) arteries are normal. Normal bilateral P1, P2 and visualized P3 segments of the posterior cerebral arteries. There is no demonstrated aneurysm of the [place]. There is no demonstrated abnormality of the visualized brain. AORTIC ARCH: Normal visualized aortic arch. Normal origins of the brachiocephalic, left common carotid, and left subclavian arteries. RIGHT CAROTID ARTERIES: Normal right common carotid artery (CCA). Normal right common carotid bulb. Normal origin of the right internal carotid (ICA) artery without a hemodynamically significant stenosis. Normal visualized cervical portion of the right internal carotid artery. Normal origin of the right external carotid artery (ECA). LEFT CAROTID ARTERIES: Normal left common carotid artery (CCA). Normal left common carotid bulb. Normal origin of the left internal carotid (ICA) artery without a hemodynamically significant stenosis. Normal visualized cervical portion of the left internal carotid artery. Normal origin of the left external carotid artery (ECA). VERTEBRAL ARTERIES: Normal bilateral vertebral arteries. CT/CTA Head AND Neck W/ Contrast IMPRESSION: Normal CTA Head and neck with contrast. Incidental finding of solid nodule with calcification in left lobe of the thyroid. Ultrasound recommended for further evaluation Electronically Signed: Jalil Higgins MD at 22:48 EDT , Service support ,
[2021-01-16 22:12] LABS: Absolute Lymphocyte Count 2.85 X10^3/uL (0.83-4.51); Absolute Neutrophil Count 5.8 X10^3/uL (2.0-7.7); Basophil# 0.08 X10^3/uL; Basophil% 0.8 % (0-1); Eosinophil# 0.33 X10^3/uL; Eosinophils% 3.3 % (0-5); Hematocrit 41.2 % (37-47); Hemoglobin 13.4 g/dL (12.0-15.0); Lymphocyte # 2.85 X10^3/ul (0.83-4.51); Lymphocyte % 28.3 % (19-41); Mean Corp Hgb Conc 32.5 g/dL (32-36); Mean Corpuscular Hgb 28.6 pg (27.0-32.0); Mean Platelet Vol. 11.5 fl (6.2-12.0); Monocyte# 0.95 X10^3/uL; Monocyte% 9.4 % (0-10); NRBC Flagged by Analyzer 0 % (0-5); Neutrophil # 5.84 X10^3/uL (2.7-7.7); Neutrophil % 57.9 % (47-70); POSITIVE COUNT YES; POSITIVE MORPHOLOGY YES; RBC Distribution Width SD 41.8 fl (35.1-43.9); Red Blood Count 4.68 M/mm3 (4.2-5.4); White Blood Count 10.1 K/mm3 (4.4-11.0)
[2021-01-16 22:17] LABS: Differential Indicated SCAN CRITERIA MET
[2021-01-16 22:28] LABS: Anion Gap 6 (5-15); BUN 10 mg/dL (7-18); Calcium,Total 9.5 mg/dL (8.5-10.1); Chloride 105 mmol/L (98-107); Creatinine, Serum 0.71 mg/dL (0.55-1.02); EST Glomerular Filtration Rate 97 mL/min (>60); Est Glom Filt Rate - Afr Amer 117 mL/min (>60); Estimated Creatinine Clearance 91.86 ml/min; Glucose 92 mg/dL (74-106); Potassium 4.2 mmol/L (3.5-5.1); Sodium Level 139 mmol/L (136-145)
[2021-01-16 22:50] LABS: Differential Comment SCANNED
[2021-01-16 22:51] LABS: Platelet Estimate ADEQUATE (ADEQ)
[2021-01-16 23:10] VITALS: BP 114/77; PULSE 74; O2SAT 97
--- NOTE | 2021-01-16 23:13 | ED.DCSUM_ITS ---
History of Present Illness Chief Complaint: Other, Pain/Inj Informant: Patient Onset: Today Narrative: Patient is a 40-year-old female with history of anxiety as well as thyroid nodules presenting with left-sided neck pain and odd sensation to her cheek. Patient states she was at work and feeling very stressed when it happened. States it felt like a pressure in her neck. She denies any associated vision changes. She denies any facial droop, hearing changes or weakness. She she is never had any like this before. She came to the ER to be evaluated further. No other complaints at this time. Past Medical History - Allergies and Home Meds Allergies/Adverse Reactions: Allergies amoxicillin Adverse Reaction (Verified 01/16/21 20:08) Vomiting codeine Adverse Reaction (Verified 01/16/21 20:08) Nausea Primary Care Physician: BRUNILDA RISO [Other] Past Medical History: - - Anxiety, thyroid nodules, bicuspid aortic valve Surgical History: noncontributory Smoking Status: Current every day smoker Review of Systems General: Denies: Chills, Fever, Sweats Eyes: Denies: Visual changes - bilaterally, Diplopia ENT: Denies: Rhinorrhea, Sore throat Cardiovascular: Denies: Chest pain, Palpitations Respiratory: Denies: Dyspnea, Cough, Dyspnea on exertion Gastrointestinal: Denies: Abdominal pain, Nausea, Vomiting, Diarrhea, Melena, Hematochezia Genitourinary: Denies: Dysuria, Hematuria, Frequency Musculoskeletal: Denies: Back pain, Extremity Pain Skin: Denies: Rash, Wounds Neurological: Reports: Parasthesia - Left neck and cheek area. Denies: Headache, Weakness, Numbness Psych: Reports: Anxiety. Denies: Depression Physical Exam Vital Signs/Narrative: Vital Signs Temp Pulse Resp BP Pulse Ox 01/16/21 23:10 74 114/77 97 01/16/21 20:10 97.5 F L 82 16 128/76 H 99 Inital Vital Signs reviewed: Yes General: Well nourished, Well developed, No Acute Distress Head: Normocephalic, Atraumatic Eyes: Perrl, EOMI ENT: Moist mucous membranes, No rhinorrhea, - - Sublingual mucosa is soft. Negative for: Nasal congestion, Sinus tenderness Neck: Supple, Nontender, No lymphadenopathy, No JVD, - - Meningeal signs, no bruits Cardiovascular: Regular rate, Regular rhythm, Murmur Respiratory: No distress, CTA bilaterally, Chest nontender Abdomen: Soft, Nontender, Nondistended, Normal bowel sounds Back: Nontender, Normal Inspection Extremities: Nontender, No edema Skin: Normal color, No rash Neurological: Alert, Oriented x3, Cranial nerves II-XII grossly intact, Normal Strength, Normal Sensation, Normal Gait, - - Normal coordination. Negative for: Left side facial droop, Right side facial droop Psychological: Normal affect, Normal Mood, Tearful Diagnostic/Tx/Re-eval Clinical Impression(s) from Imaging Studies Head/Neck CTA 01/16/21 21:28 IMPRESSION: Normal CTA Head and neck with contrast. Incidental finding of solid nodule with calcification in left lobe of the thyroid. Ultrasound recommended for further evaluation Electronically Signed: Jalil Higgins MD at 22:48 EDT , Service support , Laboratory Data 01/16/21 01/16/21 21:55 21:55 WBC 10.1 RBC 4.68 Hgb 13.4 Hct 41.2 MCV 88.0 MCH 28.6 MCHC 32.5 RDW Std Deviation 41.8 RDW Coeff of Rika 13.0 Plt Count TNP MPV 11.5 Immature Gran % (Auto) 0.300 Neut % (Auto) 57.9 Lymph % (Auto) 28.3 [place] % (Auto) 9.4 Eos % (Auto) 3.3 Baso % (Auto) 0.8 Absolute Neuts (auto) 5.8 Absolute Lymphs (auto) 2.85 Nucleated RBC % 0 Differential Comment SCANNED Platelet Estimate ADEQUATE Sodium 139 Potassium 4.2 Chloride 105 Carbon Dioxide 28.0 Anion Gap 6 BUN 10 Creatinine 0.71 Estim Creat Clear Calc 91.86 Est GFR (MDRD) Af Amer 117 Est GFR (MDRD) Non-Af 97 BUN/Creatinine Ratio 14.0 Glucose 92 Calcium 9.5 - Rhythm Strip Rhythm Strip: Sinus Rhythm Rate: 75 Ectopy: None - EKG Initial EKG Interpretation: Sinus Rhythm, - - Normal sinus rhythm at a rate of 75 Normal axis Normal intervals Normal ST segments - Medical Decision Making She was evaluated for episode of pressure and paresthesia on her left neck and cheek. She appears nontoxic in no acute distress. She has normal vital signs. She has a normal neurologic exam. EKG done per protocol which is normal. Do not think this is a referred cardiac pain. Patient is low risk for ACS. CTA of the head and neck is obtained to rule out any type of blunt cerebrovascular injury or aneurysm. This is negative. Patient has no focal neurologic deficits I think is stable for outpatient follow-up. CTA does show incidental thyroid nodule which patient was aware of. Patient has an appointment to follow-up to get an ultrasound. She also has a follow-up appointment with neurology. Patient is counseled on signs and symptoms require return the emergency room. She verbalizes agreement understand this plan. She is discharged home in stable condition. ED Disposition - Plan for ED Patient: Disposition: Home or Assisted Living Diagnosis: Thyroid nodule, Neck pain Instructions: ED Neck Pain Referrals: BRUNILDA RIOS [Other] Additional Instructions: Please follow-up with your primary care doctor for further evaluation of your thyroid nodule. Follow-up with your neurologist as planned. The exact cause of your presentation is not clear today but I have a low suspicion for stroke. I think you are safe to go home.
== END 2021-01-16 23:40 | disposition home or self-care (01) ==
PROVIDERS: Emergency Provider Emergency Medicine
DX: E04.1 Nontoxic single thyroid nodule (principal); M54.2 Cervicalgia; R20.2 Paresthesia of skin; Q23.1 Congenital insufficiency of aortic valve; F17.200 Nicotine dependence, unspecified, uncomplicated
CPT/HCPCS: 70496; 70498; 80048; 85025; 93005; 99284; Q9967; A4216

== ENCOUNTER 2021-03-18 17:41 | Emergency (ER) | payer MEDICAID, SELFPAY ==
[2021-03-18 17:42] VITALS: BP 126/85; PULSE 126; RESP 15; TEMP 36.8; O2SAT 95; BMI 33.3
--- NOTE | 2021-03-18 18:10 | EDS_ITS ---
HPI History of Present Illness Chief Complaint: Bite Narrative Narrative: 40-year-old female presenting for tick bite. She had this on her left lower abdomen. She could not tell me how long it has been on her abdomen. When asked if she thought she would have it on for 72 hours without noticing she states I do not know. She developed a small rash in this area but is not a target lesion. She did not identify the tick. She has no systemic signs or symptoms. Patient went to urgent care where they gave her doxycycline but could not obtain her blood to check for Lyme titer. ROS ROS ED Constitutional Constitutional ED: Denies chills, fever(s) or subjective Eyes Eyes: Denies blurry vision or change in vision ENT ENT ED: Denies ear pain or rhinorrhea Cardiovascular Cardiovascular: Denies chest pain or palpitations Respiratory/Chest Respiratory/Chest: Denies cough or dyspnea Gastrointestinal Gastrointestinal: Denies abdominal pain or nausea Genitourinary Genitourinary ED: Denies dysuria or hematuria Musculoskeletal Musculoskeletal: Denies arthralgias or myalgias Integumentary Reports rash Neurologic Neurologic: Denies headache(s), paresthesias or weakness PFSH PFSH Home Medications NK 01/16/21 [History Last Taken Unknown] Allergy/AdvReac Type Severity Reaction Status Date / Time amoxicillin AdvReac Vomiting Verified 03/18/21 17:42 codeine AdvReac Nausea Verified 03/18/21 17:42 Social History Smoking Status: Current every day smoker tobacco type: cigarettes EXAM Physical Exam Const Vital Signs: 03/18/21 17:42 03/18/21 20:02 Temperature 98.3 F Temperature Source Temporal Pulse Rate 126 H Respiratory Rate 15 16 Blood Pressure 126/85 H Blood Pressure Mean 98 Pulse Ox 95 Oxygen Delivery Method Room Air Positive well nourished and well developed General Appearance ED: well developed HEENT normocephalic and atraumatic Resp normal respiratory effort Cardio regular rhythm Rate: tachycardic Skin Skin Narrative: 3 x 3 cm erythematous rash on left lower abdomen. This is not a target lesion. MDM MDM MDM Narrative Medical decision making narrative: Patient presents with a small area of rash on the left lower abdomen. By the criteria she does not need to be treated for Lyme disease. She is counseled on this. Urgent care had already given her treatment. I told her therefore she still did not require a Lyme titer. Shelbie nt states that she wants to have a Lyme titer to make her feel more comfortable. I counseled her she would have already been treated prophylactically. She still insisted on having this done so I attempted to get blood drawn for this. Blood work was drawn and she knows to wait for the results at home. Patient discharged stable condition. Impression: 1 tick bite Discharge Plan Triage Chief Complaint: Bite ED Provider: Jacoby Garza Dx/Rx/DC Orders Instructions: ED Tick Bite, No Abx Tx Prescriptions: No Action NK RF: 0 Referrals: BRUNILDA RIOS [Other] Disposition Disposition: Home, Self Care Discharge Date/Time: 03/18/21 20:03
[2021-03-18 18:23] LABS: Lyme Ab Screen Interpretation REF LAB
[2021-03-18 20:02] VITALS: RESP 16
[2021-03-23 16:09] LABS: Lyme IgG P18 Ab Absent (.); Lyme IgG P23 Ab Absent (.); Lyme IgG P28 Ab Absent (.); Lyme IgG P30 Ab Absent (.); Lyme IgG P39 Ab Absent (.); Lyme IgG P41 Ab Absent (.); Lyme IgG P45 Ab Absent (.); Lyme IgG P58 Ab Absent (.); Lyme IgG P66 Ab Absent (.); Lyme IgG P93 Ab Absent (.); Lyme IgM P23 Ab Absent (.); Lyme IgM P39 Ab Absent (.); Lyme IgM P41 Ab Absent (.)
[2021-03-24 09:43] LABS: Lyme IgG WB Interpretation Negative (.); Lyme IgM WB Interpretation Negative (.); Lyme Scn Total Ab w/Rflx <0.91 ISR (0.00-0.90)
== END 2021-03-18 20:03 | disposition home or self-care (01) ==
PROVIDERS: Emergency Provider Student in an Organized Health Care Education/Training Program
DX: S30.861A Insect bite (nonvenomous) of abdominal wall, initial encounter (principal); W57.XXXA Bitten or stung by nonvenomous insect and other nonvenomous arthropods, initial encounter; Y93.9 Activity, unspecified; Y92.9 Unspecified place or not applicable; Y99.9 Unspecified external cause status; F17.210 Nicotine dependence, cigarettes, uncomplicated
CPT/HCPCS: 36415; 86617; 86618; 99282

== ENCOUNTER 2024-09-10 06:12 | Emergency (ER) | payer MEDICAID, SELFPAY ==
[2024-09-10 06:14] VITALS: BP 95/65; PULSE 83; RESP 16; TEMP 36.6; O2SAT 98; BMI 34.0
--- NOTE | 2024-09-10 06:23 | EKG12_ITS ---
Test Reason : Blood Pressure : */* mmHG Vent. Rate : 75 BPM Atrial Rate : 75 BPM P-R Int : 126 ms QRS Dur : 98 ms QT Int : 408 ms P-R-T Axes : 40 65 92 degrees QTcB Int : 455 ms Normal sinus rhythm Left ventricular hypertrophy with repolarization abnormality ( Sokolow-Milian ) Abnormal ECG Confirmed by RANI LOPEZ, CECILIA ([id number]), editor map RANDI PEARL ([id number]) on 09/11/2024 8:08:57 AM Referred By: Confirmed By: CECILIA SARAVIA MD
--- NOTE | 2024-09-10 06:25 | EX.ED.DYSGE1 ---
HPI History of Present Illness Chief Complaint: Weakness Informant: patient and EMS Narrative Narrative: 43-year-old female called EMS from work this morning for being all hot and bothered. 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 Today it was worse and she vomited. She denies any abdominal pain, chest pain, dyspnea, or losing consciousness today. She states the worst time is when she approaches the time clock to clock in. She states working there in the morning by herself is very stressful and it is high pressure. She has a history of anxiety. She used to take Ativan for it but it was 4 or 5 years ago and she has not taken anything since. [facility] Medical History (Updated 09/10/24 @ 06:[address] Jason Roblero MD) Anxiety Bicuspid aortic valve Medical History no medical history Home Medications ?Medication ?Instructions ?Recorded ?Last Taken ?Type ondansetron 8 mg disintegrating 8 mg PO Q8H PRN nausea and 09/10/24 Unknown Rx tablet vomiting #12 tabs Allergy/AdvReac Type Severity Reaction Status Date / Time amoxicillin AdvReac Vomiting Verified 09/10/24 06:14 codeine AdvReac Nausea Verified 09/10/24 06:14 Social History Smoking Status: Current every day smoker tobacco type: cigarettes ROS ROS ED Constitutional Constitutional ED: Denies chills or fever(s) Eyes Eyes: Denies change in vision or diplopia ENT ENT ED: Denies rhinorrhea or sore throat Cardiovascular Cardiovascular: Reports lightheadedness; Denies chest pain, leg edema, palpitations or syncope Respiratory/Chest Respiratory/Chest: Denies cough or dyspnea Gastrointestinal Gastrointestinal: Reports nausea and vomiting; Denies abdominal pain or diarrhea Genitourinary Genitourinary ED: Denies dysuria or hematuria Musculoskeletal Musculoskeletal: Denies back pain or neck pain Integumentary Denies abscess or rash Neurologic Neurologic: Denies headache(s), paresthesias or weakness Psychiatric Psychiatric: Reports anxiety; Denies suicidal thoughts EXAM Physical Exam Const Vital Signs: 09/10/24 06:14 09/10/24 06:17 Temperature 97.9 F Temperature Source Oral Pulse Rate 83 Respiratory Rate 16 Respiratory Pattern Normal Blood Pressure 95/65 Blood Pressure Mean 75 Pulse Ox 98 Positive well nourished and well developed General Appearance ED: well developed and NAD HEENT Reports moist mucous membranes normocephalic and atraumatic Eyes PERRL and EOMs intact bilaterally Neck full ROM and supple Resp normal respiratory effort and clear to auscultation bilaterally Cardio regular rate, regular rhythm and peripheral pulses 2+ throughout Heart Sounds: murmur systolic III/ crescendo-decrescendo GI non-tender and non-distended Auscultation: normoactive bowel sounds Palpation: soft Back/Spine no CVA tenderness General Back: other FROM Extremity normal to inspection General Extremety ED: Negative for edema, pulses abnormal or tenderness General Extremity: Negative for edema or pulses abnormal Neuro oriented x3, CN's II-XII intact bilaterally and no sensory deficits noted Sensorium / Orientation: awake and alert Motor Exam: strength 5/5 throughout Psych Mood & Affect: anxious Skin no rashes or lesions noted and no wounds MDM MDM MDM Narrative Medical decision making narrative: Patient has normal vital signs except her blood pressure is a little soft at 95/65. She is on no medications right now. I think this is all anxiety and the patient does 2, given her heart murmur presumably due to her bicuspid aortic valve, I thought it was reasonable to perform a medical workup and rule out emergent conditions and dysrhythmias. She was offered Zofran for nausea which she still has but she refuses it because she reacts to too many medications. Labs are reviewed and unremarkable. No major electrolyte disturbance and her is negative ruling out ectopic. She will except a prescription for Zofran, but thinks that she just needs to go home and sleep and see her crawford retriever. Lab Data Attestation: I reviewed the patient's lab results. Labs: Laboratory Results - last 24 hr 09/10/24 06:30 WBC 7.4 RBC 4.29 Hgb 12.4 Hct 37.0 MCV 86.2 MCH 28.9 MCHC 33.5 RDW Std Deviation 39.8 RDW Coeff of Rika 12.7 Plt Count 131 L MPV 11.7 Immature Gran % (Auto) 0.300 Neut % (Auto) 56.3 Lymph % (Auto) 28.6 [place] % (Auto) 11.8 H Eos % (Auto) 2.3 Baso % (Auto) 0.7 Absolute Neuts (auto) 4.2 Absolute Lymphs (auto) 2.11 Nucleated RBC % 0 Differential Comment SCANNED Platelet Estimate SLT DEC RBC Morphology NORM C+C Sodium 138 Potassium 3.8 Chloride 108 H Carbon Dioxide 24.0 Anion Gap 6 BUN 13 Creatinine 0.74 Estim Creat Clear Calc 107.60 Est GFR (MDRD) Af Amer 111 Est GFR (MDRD) Non-Af 92 BUN/Creatinine Ratio 17.6 Glucose 115 H Calcium 9.3 Serum , Qual NEGATIVE Rhythm Strip Rhythm Strip: Sinus Rhythm Rate: 75 Ectopy: None EKG Initial EKG: Attestation: I personally reviewed and interpreted this EKG as follows: Interpretation: Sinus Rhythm and No Acute Injury Pattern Comments: Nml axis & intervals; nml EKG Discharge Plan Triage Chief Complaint: Weakness ED Provider: Jason Roblero Dx/Rx/DC Orders Clinical Impression: Anxiety in acute stress reaction Instructions: ED Anxiety Reaction Prescriptions: New ondansetron 8 mg tablet,disintegrating 8 mg PO Q8H PRN (Reason: nausea and vomiting) Qty: 12 0RF Primary Care Provider: Care Physician,No Primary Referrals: Doctor,Your [Non-Staff] - As soon as possible Print Language: Estonian Disposition Disposition: Home, Self Care
[2024-09-10 06:37] LABS: Absolute Lymphocyte Count 2.11 X10^3/uL (0.83-4.51); Absolute Neutrophil Count 4.2 X10^3/uL (2.0-7.7); Basophil# 0.05 X10^3/uL; Basophil% 0.7 % (0-1); Eosinophil# 0.17 X10^3/uL; Eosinophils% 2.3 % (0-5); Hemoglobin 12.4 g/dL (12.0-15.0); Lymphocyte # 2.11 X10^3/ul (0.83-4.51); Lymphocyte % 28.6 % (19-41); Mean Corp Hgb Conc 33.5 g/dL (32-36); Mean Corpuscular Hgb 28.9 pg (27.0-32.0); Mean Corpuscular Volume 86.2 fL (81-99); Mean Platelet Vol. 11.7 fl (6.2-12.0); Monocyte# 0.87 X10^3/uL; Monocyte% 11.8 % (0-10); NRBC Flagged by Analyzer 0 % (0-5); Neutrophil # 4.16 X10^3/uL (2.7-7.7); Neutrophil % 56.3 % (47-70); POSITIVE COUNT YES; Platelet Count 131 K/mm3 (150-450); RBC Distribution Width CV 12.7 % (11.6-14.6); RBC Distribution Width SD 39.8 fl (35.1-43.9); Red Blood Count 4.29 M/mm3 (4.2-5.4); White Blood Count 7.4 K/mm3 (4.4-11.0)
[2024-09-10 06:52] LABS: Internal QC Validated? YES +Cl - CLEAR BKGD; Pregnancy, Serum, hCG Quali. NEGATIVE Negative; Record Kit Lot#, Serum Preg. 872158
[2024-09-10 06:54] LABS: Anion Gap 6 (5-15); BUN 13 mg/dL (7-18); BUN/Creat Ratio 17.6 RATIO (10-20); Calcium,Total 9.3 mg/dL (8.5-10.1); Chloride 108 mmol/L (98-107); Creatinine, Serum 0.74 mg/dL (0.55-1.02); EST Glomerular Filtration Rate 92 mL/min (>60); Est Glom Filt Rate - Afr Amer 111 mL/min (>60); Glucose 115 mg/dL (74-106); Potassium 3.8 mmol/L (3.5-5.1); Sodium Level 138 mmol/L (136-145)
[2024-09-10 07:02] LABS: Differential Comment SCANNED; Differential Indicated SCAN CRITERIA MET; Platelet Estimate SLT DEC (ADEQ); Red Cell Morphology NORM C+C NORMAL (NORM C&C)
[2024-09-10 07:06] VITALS: BP 118/79; PULSE 72; RESP 15; TEMP 36.3; O2SAT 100
== END 2024-09-10 07:07 | disposition home or self-care (01) ==
LOC: ED 06:39
PROVIDERS: Emergency Provider Emergency Medicine; Visit Provider Emergency Medicine
DX: F43.0 Acute stress reaction (principal); F17.210 Nicotine dependence, cigarettes, uncomplicated
CPT/HCPCS: 80048; 84703; 85025; 93005; 96374; 99285; A4216; J2405

== ENCOUNTER 2025-08-01 09:04 | Emergency (ER) | payer MEDICAID, SELFPAY ==
[2025-08-01 09:04] VITALS: TEMP 36.6; BMI 34.9
--- NOTE | 2025-08-01 09:23 | EKG12_ITS ---
Test Reason : GENERAL
--- NOTE | 2025-08-01 09:25 | EX.ED.DYSGE1 ---
HPI History of Present Illness Chief Complaint: Syncope Informant: patient and EMS Narrative Narrative: 44-year-old female presenting to the emergency room via EMS with a chief complaint of syncope. Patient speaks is a rather elusive historian. Starts by telling me that she has a bicuspid valve, a lesion on her brain that they are watching, and possible MS. She states that she walks around all the time feeling like she may be able to pass out. She states that today she lost control of her bowels and is vomiting. She states that preceding that she had a syncopal episode. She states her dad found her in the bathroom. She wonders if she hit her head. She states that she had a very stressful episode prior to the event. When asked what the stressful episode was she states that her dad was recently in the hospital and they thought that maybe he had a stroke. Her sister was at the home and was having her dad carry something heavy and he fell. She states that her sister and subsequently left for [place] it was very stressful for her. Patient states that she does not currently take any medications or is under any treatment for anything. She states she does not have a family doctor. She has several ED visits for anxiety. Patient states she is nauseous and is not having vomiting. [facility] Medical History Bicuspid aortic valve Anxiety Home Medications ?Medication ?Instructions ?Recorded ?Last Taken ?Type NK 08/01/25 Unknown History Allergy/AdvReac Type Severity Reaction Status Date / Time Penicillins (PCN) Allergy Mild Vomiting Verified 08/01/25 09:05 amoxicillin AdvReac Vomiting Verified 08/01/25 09:05 codeine AdvReac Nausea Verified 08/01/25 09:05 Surgical History History of surgery on lower extremity Social History Smoking Status: Current every day smoker tobacco type: cigarettes ROS ROS ED Constitutional Constitutional ED: Denies chills, fever(s) or weight loss Eyes Eyes: Denies change in vision or diplopia ENT ENT ED: Denies ear pain, rhinorrhea or sore throat Cardiovascular Cardiovascular: Reports other Details: Syncope/near syncope ; Denies chest pain, orthopnea, palpitations or racing heartbeat Respiratory/Chest Respiratory/Chest: Denies cough, dyspnea or orthopnea Gastrointestinal Gastrointestinal: Reports nausea and vomiting; Denies abdominal pain or diarrhea Genitourinary Genitourinary ED: Denies dysuria, hematuria or urinary frequency Musculoskeletal Musculoskeletal: Denies arthralgias or myalgias Integumentary Denies abscess or rash Neurologic Neurologic: Denies headache(s) or weakness Psychiatric Psychiatric: Reports anxiety; Denies depression, suicidal ideation or suicidal thoughts Endocrine Endocrinology: Denies polydipsia, polyphagia or polyuria Allergic/Immunologic Allergic/Immunologic ED: Denies mouth swelling, tongue swelling or urticaria EXAM Physical Exam Narrative Exam Narrative: Patient moving around the bed. She does spit into an emesis bag but no emesis. Const Vital Signs: 08/01/25 09:04 08/01/25 09:15 08/01/25 11:04 Temperature 97.8 F Temperature Source Oral Pulse Rate 97 Respiratory Effort Normal Non-Labored Respiratory Pattern Normal Blood Pressure 136/99 H Blood Pressure Mean 111 Positive well nourished and well developed General Appearance ED: well developed HEENT Reports normocephalic, head/scalp atraumatic and moist mucous membranes Eyes PERRL and EOMs intact bilaterally Neck no lymphadenopathy, supple and no JVD Resp normal respiratory effort and clear to auscultation bilaterally Cardio regular rate and regular rhythm Rate: other Other Details: 2 out of 6 systolic murmur GI normal to inspection, nondistended, normoactive bowel sounds and non-tender Palpation: soft Back/Spine no CVA tenderness and normal ROM Extremity normal to inspection General Extremety ED: Negative for edema General Extremity: Negative for edema Neuro oriented x3 and CN's II-XII intact bilaterally Sensorium / Orientation: alert Motor Exam: strength 5/5 throughout Psych mental status grossly normal Psych Narrative: Patient appears anxious and has a dramatic/PD affect. Mood & Affect: anxious; Negative for depressed or tearful Skin no rashes or lesions noted and no wounds MDM MDM MDM Narrative Medical decision making narrative: Differential diagnosis includes anxiety/panic attack, cardiogenic syncope, dehydration, gastroenteritis, electrolyte abnormality, head injury, Patient appears in a sinus rhythm on the monitor. EKG is normal sinus rhythm at a rate of 75. Negative interpretation of the chest x-ray is no acute process. Basic blood work is obtained shows hemoglobin 13.1. Normal electrolytes. test is negative. Initially Compazine and Benadryl was ordered but the patient declined requesting Zofran. She is doing better on repeat examination. I suspect that the patient had significant anxiety coupled with being in the bathroom resulted in a probable vagal reaction. Would recommend decreasing stress stress management following up/establishing primary care. Patient is comfortable with this plan History & Record Review Discussion w/independent historian: Patient Additional record(s) reviewed:: Prior ED visit Lab Data Attestation: I reviewed the patient's lab results. Labs: Laboratory Results - last 24 hr 08/01/25 09:37 WBC 9.3 RBC 4.42 Hgb 13.1 Hct 38.3 MCV 86.7 MCH 29.6 MCHC 34.2 RDW Std Deviation 41.1 RDW Coeff of Rika 13.0 Plt Count 288 MPV 11.2 Immature Gran % (Auto) 0.200 Neut % (Auto) 55.1 Lymph % (Auto) 30.7 [place] % (Auto) 8.9 Eos % (Auto) 4.1 Baso % (Auto) 1.0 Absolute Neuts (auto) 5.1 Absolute Lymphs (auto) 2.84 Nucleated RBC % 0 Sodium 140 Potassium 3.3 Chloride 108 Carbon Dioxide 19.8 L Anion Gap 13 BUN 10 Creatinine 0.67 L Estim Creat Clear Calc 119.20 Est GFR (MDRD) Non-Af 111 BUN/Creatinine Ratio 15.2 Glucose 140 H Calcium 9.2 Total Bilirubin 0.65 AST 29 ALT 29 Alkaline Phosphatase 66 Total Protein 7.1 Albumin 4.1 Globulin 3.0 Albumin/Globulin Ratio 1.4 Serum , Qual NEGATIVE Radiography Diagnostic Testing: Clinical Impression(s) from Imaging Studies Chest X-Ray 08/01/25 10:20 IMPRESSION: No acute cardiopulmonary abnormalities. Reading Location: [facility] EKG Initial EKG: Attestation: I personally reviewed and interpreted this EKG as follows: Comments: Normal sinus rhythm ventricular rate of 75 bpm. Discharge Plan Triage Chief Complaint: Syncope ED Provider: Juan Alberto Cortez Dx/Rx/DC Orders Clinical Impression: Syncope, Anxiety, Vomiting Instructions: Causes of Syncope Prescriptions: No Action NK Primary Care Provider: Care Physician,No Primary Referrals: Care Physician,No Primary [Primary Care Provider, Medical] Print Language: Armenian Disposition Disposition: Home, Self Care
[2025-08-01 09:47] LABS: Hematocrit 38.3 % (37-47); Hemoglobin 13.1 g/dL (12.0-15.0); Immature Granulocytes Count 0.020 X10^3/uL (0.0-0.0); Mean Corp Hgb Conc 34.2 g/dL (32-36); Mean Corpuscular Volume 86.7 fL (81-99); Mean Platelet Vol. 11.2 fl (6.2-12.0); NRBC Flagged by Analyzer 0 % (0-5); Platelet Count 288 K/mm3 (150-450); RBC Distribution Width CV 13.0 % (11.6-14.6); RBC Distribution Width SD 41.1 fl (35.1-43.9); Red Blood Count 4.42 M/mm3 (4.2-5.4); White Blood Count 9.3 K/mm3 (4.4-11.0)
[2025-08-01] MEDS: 0.9% Normal Saline (1000mL) 1,000 ML 1000 ML IV (09:50)
[2025-08-01 09:59] LABS: Internal QC Validated? YES +Cl - CLEAR BKGD; Pregnancy, Serum, hCG Quali. NEGATIVE Negative; Record Kit Lot#, Serum Preg. 980607
[2025-08-01 10:10] LABS: AST(SGOT) 29 U/L (<=31); Alanine Aminotransfer ALT/SGPT 29 U/L (<=34); Albumin, Serum 4.1 g/dL (3.5-5.0); Alkaline Phosphatase 66 U/L (35-104); Anion Gap 13 (5-15); BUN 10 mg/dL (4-19); BUN/Creat Ratio 15.2 RATIO (10-20); Calcium,Total 9.2 mg/dL (7.6-11.0); Carbon Dioxide 19.8 mmol/L (21.0-32.0); Chloride 108 mmol/L (98-108); Estimated Creatinine Clearance 119.20 ml/min (50-250); Globulin 3.0 g/dL (2.2-4.2); Glucose 140 mg/dL (70-99); Potassium 3.3 mmol/L (3.3-5.1)
--- NOTE | 2025-08-01 10:20 | RAD_ITS ---
PROCEDURE: RAD/Chest 1 View (Portable)
[2025-08-01 11:04] VITALS: BP 136/99; PULSE 97
--- NOTE | 2025-08-01 12:00 | ED.RN ---
Pt. given discharge instructions and PIV removed. Pt. requested prescription for oral zofran, Dr. Cortez stated he would send one. Pt. wanted to wait in room while waiting for ride, this RN stated that she would need to wait in waiting room as we4 have several people waiting to be seen. Pt. given clothes and instructed to call for help when finished getting dressed and I would get a wheelchair and wheel her to waiting room.
[2025-08-01 12:02] VITALS: BP 124/62; PULSE 80; RESP 17; TEMP 36.9; O2SAT 100
== END 2025-08-01 12:03 | disposition home or self-care (01) ==
PROVIDERS: Emergency Provider Emergency Medicine; Visit Provider Emergency Medicine
DX: R55 Syncope and collapse (principal); R11.10 Vomiting, unspecified; F41.9 Anxiety disorder, unspecified; F17.210 Nicotine dependence, cigarettes, uncomplicated
CPT/HCPCS: 71045; 80053; 84703; 85025; 93005; 96361; 96374; 99285; A4216; J2405